=== PATIENT | male | born 1950 | race Caucasian/White ===

== ENCOUNTER 2023-01-28 03:58 | Inpatient (IN) | payer OTHER ==
[2023-01-28] MEDS ORDERED: morphine CARPU-JECT 2 MG/1 ML DISP.SYRIN IVPUSH ONE ×2 (04:24→10:14)
[2023-01-28] MEDS ORDERED: SODIUM CHLORIDE 1,000 ML IV ONE (04:24)
[2023-01-28] MEDS ORDERED: ONDANSETRON 4 MG/2 ML VIAL IVPB ONE (04:24)
[2023-01-28] MEDS ORDERED: ONDANSETRON 4 MG/2 ML VIAL ONE ×2 (04:52→16:07)
[2023-01-28] MEDS ORDERED: morphine SULFATE 4 MG/ML VIAL ONE ×2 (04:52→10:19)
[2023-01-28 05:36] LABS: HEMATOCRIT 42.2 % (35.4-49); HEMOGLOBIN 14.7 GM/dL (11.7-16.9); MCH 33.1 pg (25.7-33.7); MCHC 34.8 g/dl (32.0-35.9); MEAN CELL VOLUME 95.3 fl (80-96); MEAN PLT VOLUME 9.3 fl (7.5-11.1); PLATELET COUNT 298 10^3/uL (134-434); RBC 4.43 M/mm3 (4.00-5.60); RDW 13.9 % (11.9-15.9); WHITE BLOOD COUNT 17.1 K/mm3 (4.0-10.0)
[2023-01-28 05:53] LABS: POTASSIUM 3.7 mmol/L (3.5-5.1)
[2023-01-28 05:55] LABS: CALCIUM 9.1 mg/dL (8.5-10.1)
[2023-01-28 05:56] LABS: ALBUMIN 3.8 g/dl (3.4-5.0); BLOOD UREA NITROGEN 25.4 mg/dL (7-18)
[2023-01-28 05:59] LABS: CREATININE 1.4 mg/dL (0.55-1.3)
[2023-01-28 06:00] LABS: TOT PROT 7.5 g/dl (6.4-8.2)
[2023-01-28 06:23] LABS: LACTIC ACID 3.6 mmol/L (0.4-2.0)
[2023-01-28 06:46] LABS: EPI CELLS 2 /uL (0-25.1); HYALINE CASTS 11 /uL (0-3.1); INR 1.09 (0.83-1.09); PROTHROMBIN TIME (PATIENT) 12.6 SEC (9.7-13.0); URINE APPEARANCE CLOUDY; URINE BACTERIA >9,000 /uL (0-1359); URINE BILIRUBIN NEGATIVE (NEGATIVE); URINE COLOR YELLOW; URINE GLUCOSE (UA) NEGATIVE (NEGATIVE); URINE KETONE 2+ (NEGATIVE); URINE LEUK ESTERASE 3+ (NEGATIVE); URINE NITRITE POSITIVE (NEGATIVE); URINE PROTEIN TRACE (NEGATIVE); URINE RBC 9 /uL (0-23.9); URINE UROBILINOGEN 0.2 mg/dL (0.2-1.0); URINE WBC 665 /uL (0-25.8)
[2023-01-28] MEDS ORDERED: PIPERACILLIN/TAZOB 3.375 GM 3.375 GM in DEXTROSE 5%-WATER - 50 ML IVPB ONE (07:15)
[2023-01-28] MEDS ORDERED: PIPERACILLIN/TAZOBACTAM 3.375 GM VIAL IVPB ONE (07:50)
[2023-01-28 10:21] LABS: LACTIC ACID 2.2 mmol/L (0.4-2.0)
[2023-01-28] MEDS ORDERED: CEFTRIAXONE 1 GM in DEXTROSE 5%-WATER - 50 ML IVPB SCH (15:45)
[2023-01-28] MEDS ORDERED: oxyCODONE HCL 5 MG TABLET PO PRN (15:49)
[2023-01-28] MEDS ORDERED: MIDAZOLAM HCL 2 MG/2 ML SINGLE DOSE VIAL ONE (15:51)
[2023-01-28] MEDS ORDERED: PROPOFOL 20 ML ONE (15:51)
[2023-01-28] MEDS ORDERED: KETAMINE HCL 500 MG/10 ML VIAL ONE (15:53)
[2023-01-28] MEDS ORDERED: LACTATED RINGERS SOLUTION 1,000 ML IV SCH (16:00)
[2023-01-28] MEDS ORDERED: ceFAZolin SODIUM 1 GM VIAL ONE ×2 (16:13)
[2023-01-28] MEDS ORDERED: ceFAZolin SODIUM 1 GM VIAL IVPB ONE (16:13)
[2023-01-28] MEDS ORDERED: ACETAMINOPHEN 1000 MG/100 ML BAG IVPB PRN (18:30)
[2023-01-28] MEDS ORDERED: ATORVASTATIN CA 10 MG TABLET (FP) PO SCH (22:00)
[2023-01-28] MEDS ORDERED: CLOTRIMAZOLE/BETAMET DIPROP 15 GM TUBE TP SCH (22:00)
[2023-01-28] MEDS: ATORVASTATIN CA 10 MG TABLET (FP) PO SCH (22:49)
[2023-01-28] MEDS: CLOTRIMAZOLE/BETAMET DIPROP 15 GM TUBE TP SCH (22:50)
[2023-01-29 08:22] LABS: POTASSIUM 3.7 mmol/L (3.5-5.1)
[2023-01-29 08:27] LABS: BLOOD UREA NITROGEN 22.4 mg/dL (7-18); CALCIUM 7.9 mg/dL (8.5-10.1); MAGNESIUM 1.7 mg/dL (1.8-2.4)
[2023-01-29 08:29] LABS: HEMATOCRIT 35.2 % (35.4-49); HEMOGLOBIN 11.8 GM/dL (11.7-16.9); MCHC 33.6 g/dl (32.0-35.9); MEAN CELL VOLUME 95.3 fl (80-96); MEAN PLT VOLUME 8.6 fl (7.5-11.1); PLATELET COUNT 219 10^3/uL (134-434); RDW 14.4 % (11.9-15.9)
[2023-01-29 08:30] LABS: PHOSPHOROUS 2.6 mg/dL (2.5-4.9)
[2023-01-29 08:31] LABS: CREATININE 1.2 mg/dL (0.55-1.3)
[2023-01-29 08:32] LABS: BILIRUBIN,TOTAL 0.6 mg/dL (0.2-1)
[2023-01-29 08:35] LABS: ALBUMIN 2.4 g/dl (3.4-5.0); TOT PROT 5.3 g/dl (6.4-8.2)
[2023-01-29 08:45] LABS: WHITE BLOOD COUNT 32.8 K/mm3 (4.0-10.0)
[2023-01-29] MEDS ORDERED: PIPERACILLIN/TAZOB 3.375 GM 3.375 GM in DEXTROSE 5%-WATER - 50 ML IVPB ONE ×2 (09:07→17:00)
[2023-01-29 09:27] LABS: ANISOCYTOSIS 1+; MACROCYTOSIS 0
[2023-01-29] MEDS ORDERED: CEFTRIAXONE 1 GM in DEXTROSE 5%-WATER - 50 ML IVPB SCH (10:00)
[2023-01-29] MEDS: CLOTRIMAZOLE/BETAMET DIPROP 15 GM TUBE TP SCH ×2 (11:13→23:04)
[2023-01-29] MEDS: PIPERACILLIN/TAZOB 3.375 GM 3.375 GM in DEXTROSE 5%-WATER - 50 ML IVPB SCH (18:01)
[2023-01-29] MEDS: ATORVASTATIN CA 10 MG TABLET (FP) PO SCH (23:04)
[2023-01-30] MEDS: PIPERACILLIN/TAZOB 3.375 GM 3.375 GM in DEXTROSE 5%-WATER - 50 ML IVPB SCH ×3 (02:26→17:10)
[2023-01-30 07:42] LABS: HEMATOCRIT 35.1 % (35.4-49); HEMOGLOBIN 12.1 GM/dL (11.7-16.9); MCH 32.8 pg (25.7-33.7); MCHC 34.4 g/dl (32.0-35.9); MEAN CELL VOLUME 95.4 fl (80-96); MEAN PLT VOLUME 9.7 fl (7.5-11.1); PLATELET COUNT 196 10^3/uL (134-434); RBC 3.68 M/mm3 (4.00-5.60); RDW 13.7 % (11.9-15.9)
[2023-01-30 07:58] LABS: POTASSIUM 3.4 mmol/L (3.5-5.1)
[2023-01-30 08:03] LABS: CALCIUM 7.9 mg/dL (8.5-10.1)
[2023-01-30 08:04] LABS: BLOOD UREA NITROGEN 15.7 mg/dL (7-18); MAGNESIUM 1.9 mg/dL (1.8-2.4)
[2023-01-30 08:07] LABS: CREATININE 0.8 mg/dL (0.55-1.3)
[2023-01-30] MEDS ORDERED: POTASSIUM CHLORIDE TABS 20 MEQ TABLET.ER (FP) PO ONE ×2 (08:48→11:42)
[2023-01-30] MEDS: TAMSULOSIN HCL 0.4 MG CAP PO SCH (08:59)
[2023-01-30 09:38] LABS: ANISOCYTOSIS 0; HELMET CELLS 0; HOWELL-JOLLY BODIES 0; MACROCYTOSIS 0; OVALOCYTE 0; ROULEAU 0; SICKELED CELLS 0; TARGET CELLS 0; TEAR DROP CELLS 0; TOXIC GRANULATION 0
[2023-01-30] MEDS: CLOTRIMAZOLE/BETAMET DIPROP 15 GM TUBE TP SCH ×2 (10:00→22:13)
[2023-01-30] MEDS: ATORVASTATIN CA 10 MG TABLET (FP) PO SCH (22:13)
[2023-01-31] MEDS: PIPERACILLIN/TAZOB 3.375 GM 3.375 GM in DEXTROSE 5%-WATER - 50 ML IVPB SCH ×3 (02:10→17:59)
[2023-01-31 08:12] LABS: BASO % 0.3 % (0-2.0); EOS % 0.4 % (0-4.5); HEMATOCRIT 34.9 % (35.4-49); HEMOGLOBIN 12.3 GM/dL (11.7-16.9); LYMPH % 6.3 % (8-40); MCHC 35.2 g/dl (32.0-35.9); MEAN CELL VOLUME 93.9 fl (80-96); MEAN PLT VOLUME 9.6 fl (7.5-11.1); PLATELET COUNT 186 10^3/uL (134-434); RBC 3.72 M/mm3 (4.00-5.60); RDW 14.1 % (11.9-15.9); WHITE BLOOD COUNT 14.5 K/mm3 (4.0-10.0)
[2023-01-31 08:47] LABS: POTASSIUM 4.1 mmol/L (3.5-5.1)
[2023-01-31 08:48] LABS: BLOOD UREA NITROGEN 11.8 mg/dL (7-18); CALCIUM 7.8 mg/dL (8.5-10.1); MAGNESIUM 2.1 mg/dL (1.8-2.4)
[2023-01-31 08:52] LABS: CREATININE 0.9 mg/dL (0.55-1.3)
[2023-01-31 10:02] VITALS: RESP 18
[2023-01-31] MEDS: TAMSULOSIN HCL 0.4 MG CAP PO SCH (10:20)
[2023-01-31] MEDS: CLOTRIMAZOLE/BETAMET DIPROP 15 GM TUBE TP SCH ×2 (10:21→22:31)
[2023-01-31] MEDS: ATORVASTATIN CA 10 MG TABLET (FP) PO SCH (22:31)
[2023-01-31 23:59] VITALS: BMI 23.8
[2023-02-01] MEDS: PIPERACILLIN/TAZOB 3.375 GM 3.375 GM in DEXTROSE 5%-WATER - 50 ML IVPB SCH ×2 (01:20→09:38)
[2023-02-01 07:47] LABS: BASO % 0.5 % (0-2.0); EOS % 0.6 % (0-4.5); HEMATOCRIT 36.6 % (35.4-49); HEMOGLOBIN 12.9 GM/dL (11.7-16.9); LYMPH % 10.7 % (8-40); MCH 33.1 pg (25.7-33.7); MCHC 35.1 g/dl (32.0-35.9); MEAN CELL VOLUME 94.2 fl (80-96); MEAN PLT VOLUME 8.9 fl (7.5-11.1); MONO % 13.3 % (3.8-10.2); NEUT % 74.9 % (42.8-82.8); PLATELET COUNT 217 10^3/uL (134-434); RBC 3.89 M/mm3 (4.00-5.60); RDW 13.6 % (11.9-15.9); WHITE BLOOD COUNT 12.5 K/mm3 (4.0-10.0)
[2023-02-01 08:00] LABS: POTASSIUM 3.5 mmol/L (3.5-5.1)
[2023-02-01 08:01] LABS: BLOOD UREA NITROGEN 11.7 mg/dL (7-18); CALCIUM 8.1 mg/dL (8.5-10.1)
[2023-02-01 08:05] LABS: CREATININE 0.9 mg/dL (0.55-1.3)
[2023-02-01] MEDS: TAMSULOSIN HCL 0.4 MG CAP PO SCH (09:39)
[2023-02-01] MEDS: CLOTRIMAZOLE/BETAMET DIPROP 15 GM TUBE TP SCH (09:40)
[2023-02-01] MEDS ORDERED: FINASTERIDE 5 MG TABLET (FP) PO SCH (10:00)
[2023-02-01 13:55] VITALS: BP 118/70; PULSE 70; TEMP 98.4
== END 2023-02-01 13:30 | disposition home or self-care (01) | DRG 854 ==
LOC: FER 03:58 → UNDOADMOB 11:59 → J7W 11:59 → INTOOBSV 11:59 → J7W 15:21 → OBSVTOIN 01-29 14:44
PROVIDERS: ADMIT Internal Medicine Endocrinology, Diabetes & Metabolism; ATTEND Internal Medicine
PROC: 0T9B80Z Drainage of Bladder with Drainage Device, Via Natural or Artificial Opening Endoscopic (ICD-10-PCS; 2023-01-28)
PROC: 0TJB8ZZ Inspection of Bladder, Via Natural or Artificial Opening Endoscopic (ICD-10-PCS; 2023-01-28)
PROC: 0T778DZ Dilation of Left Ureter with Intraluminal Device, Via Natural or Artificial Opening Endoscopic (ICD-10-PCS; principal; 2023-01-28 15:00)
DX: A41.59 Other Gram-negative sepsis (principal); E87.20 Acidosis, unspecified; N13.6 Pyonephrosis; N17.9 Acute kidney failure, unspecified; I10 Essential (primary) hypertension; E78.5 Hyperlipidemia, unspecified; D72.829 Elevated white blood cell count, unspecified; N40.0 Benign prostatic hyperplasia without lower urinary tract symptoms; N13.9 Obstructive and reflux uropathy, unspecified; R11.2 Nausea with vomiting, unspecified; Z93.2 Ileostomy status; B96.1 Klebsiella pneumoniae [K. pneumoniae] as the cause of diseases classified elsewhere
CPT/HCPCS: 36415; 71045-TC-FY; 74177-TC; 76000-TC-FY; 80048; 80053; 81003; 82550; 83605; 83690; 83735; 84100; 84484; 85025; 85027; 85610; 87040; 87086; 87186; 93005; 94010; 94760; 99285-25; C2617; C9803-CS; G0378; U0003; U0005